=== PATIENT | female | born 1955 | race Caucasian/White ===

== ENCOUNTER → 2018-02-09 | Outpatient (CLI) | payer BC | LOC: GMAB 10:36 | PROVIDERS: ATTEND Family Medicine | DX: D51.3 Other dietary vitamin B12 deficiency anemia (principal) ==

== ENCOUNTER → 2018-03-07 | Outpatient (CLI) | payer BC ==
--- NOTE | 2018-03-07 11:19 | CT ---
EXAM DESCRIPTION: Abdomen w/Contrast: Computed Tomography. CLINICAL HISTORY: EPIGASTRIC PAIN COMPARISON: CT abdomen without and with IV contrast 11/04/2012. TECHNIQUE: Spiral-axial scans at 5.0 mm intervals through the abdomen, after nonionic IV contrast. No oral contrast. Coronal and sagittal 2.0 mm reconstructions. Delayed helical axial 5.0 mm scans, liver to the upper pelvis. No adverse reactions. Total Exam DLP: 712.16 mGy-cm. This exam was performed according to our departmental CT dose-optimization program which includes automated exposure control, adjustment of the mA and/or kV according to patient size and/or use of iterative reconstruction technique; to reduce radiation dose to as low as reasonably achievable (ALARA). FINDINGS: Lung bases and pleura: Bilateral basilar scarring stable. Liver, Stomach, Spleen, Adrenal Glands: Stomach small hiatal hernia otherwise unremarkable; solid organs are negative. Pancreas, Gallbladder, Ducts: Surgical clips gallbladder fossa with no fluid. Postcholecystectomy dilation of the common bile duct. Pancreas negative. Kidneys: Unremarkable. Mesentery: No free fluid or free air. No fatty stranding or fascial thickening. Aorta: Atherosclerotic calcification more distally extending into the common iliac arteries bilaterally. Small periaortic lymph nodes at the level of the crossing of the duodenum. Small Bowel: Normal caliber. Terminal Ileum/Cecum: Not visualized. Appendix not visualized. Colon: Included segments with diffuse fecal material and redundancy of the transverse colon. Spine: Minimal disc space narrowing L5-S1 and narrowing of the foramen. Calcification posterior L2-3 disc. Abdominal Wall/Back Soft Tissues: Unremarkable. IMPRESSION: 1. Stable bibasilar scarring in the lungs. 2. Stable small gastric hiatal hernia. 3. Stable small periaortic lymph nodes, left of the aorta, at the level of the duodenal crossing. 4. Stable spondylosis L2-3 and L5-S1. Electronically signed by: Jesus Gutierrez MD 03/07/2018 11:18 AM CDT
== END ==
LOC: LAB.O 08:04
PROVIDERS: ATTEND Internal Medicine Gastroenterology
DX: R10.13 Epigastric pain (principal); K44.9 Diaphragmatic hernia without obstruction or gangrene

== ENCOUNTER 2018-04-08 07:56 | Observation (INO) | payer BC ==
[2018-04-08] MEDS ORDERED: MORPHINE SULFATE INJ 10 MG/ML VIAL IV ONE (08:08)
[2018-04-08] MEDS ORDERED: ASPIRIN TABLET 325 MG TAB PO ONE (08:08)
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
[2018-04-08] MEDS ORDERED: KETOROLAC TROMETHAMINE INJ 30 MG/ML VIAL IV ONE (08:46)
[2018-04-08] MEDS ORDERED: diazePAM 5 MG TAB PO ONE (08:46)
[2018-04-08] MEDS ORDERED: LIDOCAINE HCL 2% (MOUTH-THROAT) 15 ML UD ONE (09:06)
[2018-04-08] MEDS ORDERED: ALUM & MAG HYDROX-SIMETHICONE 30 ML UD ONE (09:06)
[2018-04-08] MEDS ORDERED: ALUM & MAG HYDROX-SIMETHICONE 30 ML, LIDOCAINE VISCOUS 2% 15 ML PO ONE ×2 (09:07)
[2018-04-08] MEDS ORDERED: PANTOPRAZOLE SODIUM IV 40 MG VIAL IV ONE (09:43)
[2018-04-08] MEDS ORDERED: SUCRALFATE 1 GM/10 ML 1 GM UD PO ONE ×2 (09:43→13:36)
--- NOTE | 2018-04-08 12:42 | ED.PDOC ---
History of Present Illness - General Chief Complaint: Chest Pain/KS Stated Complaint: right sided chest pain Time Seen by Provider: 04/08/18 08:01 Source: patient Exam Limitations: no limitations - History of Present Illness Initial Comments: the patient is a 62-year-old female presenting to the emergency room secondary to right upper chest and back pain starting last night mildly at around 8 PM. The pain is worsened overnight and become severe today. It is a little worse with movement. It seems to be a little worse with lying back. Not definitely worse with taking a deep breath. There is no associated syncope or near syncope. No shortness of breath. She does have some mild muscle discomfort palpation over the pectoralis muscle in the paraspinal muscles in the areas where she is having pain but it does not really reproduce the pain that she is feeling. Morphine Toradol and Valium fail to help the pain really any at all. She did however get some significant pain relief with a GI cocktail. 2 weeks ago she had an upper endoscopy confirming significant gastritis as well as a hiatal hernia and esophagitis. She was written for a new medication but reports that she has been still having some significant reflux issues. She has had reflux issues for a long time. Timing/Duration: constant, getting worse Severity: severe Improving Factors: medication Worsening Factors: nothing Associated Symptoms: chest pain Allergies/Adverse Reactions: Allergies Erythromycin Allergy (Verified 04/08/18 08:05) Review of Systems - Review of Systems Constitutional: States: no symptoms reported EENTM: States: no symptoms reported Respiratory: States: no symptoms reported Cardiology: States: chest pain Gastrointestinal/Abdominal: States: nausea Genitourinary: States: no symptoms reported Musculoskeletal: States: back pain Skin: States: no symptoms reported Neurological: States: anxiety Endocrine: States: no symptoms reported All other Systems: No Change from Baseline Family Medical History - Family History Mother Family History: Unknown Physical Exam - Physical Exam General Appearance: Alert, Anxious Eye Exam: bilateral normal Ears, Nose, Throat: hearing grossly normal, normal ENT inspection, normal pharynx Neck: full range of motion, supple Respiratory: lungs clear, normal breath sounds, no respiratory distress, no accessory muscle use, other - patient does have someright pectoralis muscle discomfort to palpationbut it does not entirely reproduce her symptoms Cardiovascular/Chest: normal peripheral pulses, regular rate, rhythm, no edema Peripheral Pulses: radial,right: 2+, radial,left: 2+, dorsalis pedis,right: 2+, dorsalis pedis,left: 2+ Gastrointestinal/Abdominal: non tender, soft, other - mild epigastric discomfort to palpation Rectal Exam: deferred Back Exam: no vertebral tenderness, other - she does have mild upper paraspinal muscle discomfort palpation on the right Extremity: non-tender, normal inspection, no pedal edema, normal capillary refill 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, no motor/sensory deficits, alert, oriented x 3, other - the patient is very anxious Skin Exam: normal color Comments: Vital Signs - 24 hr 04/08/18 04/08/18 04/08/18 07:57 08:05 08:59 Temperature 97.5 F L Pulse Rate [ 86 86 71 left brachial] Respiratory 24 24 26 H Rate Blood Pressure 168/92 147/88 [left brachial] O2 Sat by Pulse 100 100 Oximetry 04/08/18 04/08/18 04/08/18 10:00 12:00 12:31 Temperature Pulse Rate [ 67 63 63 left brachial] Respiratory 16 Rate Blood Pressure 146/79 143/82 142/80 [left brachial] O2 Sat by Pulse 98 Oximetry Progress - Progress Progress: 04/08/18 12:45 the patient is a 62-year-old female presenting to the emergency room secondary to right-sided chest pain that has been gradually progressive to a severe state over the last 12 hours. She does have a significant history of gastritis and esophagitis with a known hiatal hernia just documented 2 weeks ago on endoscopy. This is most likely source of her pain. The patient has responded very positively to GI medications while failing with morphine and Valium and Toradol. 2 sets of cardiac enzymes are negative here. There is no elevation of the d-dimer or CK to indicate significant aortic pathology. No widening of the mediastinum either on x-ray. The patient is feeling significantly better at this time however given the severity of her symptoms upon arrival the patient is going to be admitted for continued control of her symptoms and for the longer cardiac rule out. the patient does not seem to have any significant vascular history and her risks for vascular pathology seen minimal for her age. - Results/Orders Results/Orders: chest x-ray shows no obvious acute pathology. No widening of mediastinum. No significant infiltrates. EKG shows normal sinus rhythm. No acute ST segment changes concerning for ischemia. Normal QT interval. Rate is 81 bpm. Vital Signs - 24 hr 04/08/18 04/08/18 04/08/18 07:57 08:05 08:59 Temperature 97.5 F L Pulse Rate [ 86 86 71 left brachial] Respiratory 24 24 26 H Rate Blood Pressure 168/92 147/88 [left brachial] O2 Sat by Pulse 100 100 Oximetry 04/08/18 04/08/18 04/08/18 10:00 12:00 12:31 Temperature Pulse Rate [ 67 63 63 left brachial] Respiratory 16 Rate Blood Pressure 146/79 143/82 142/80 [left brachial] O2 Sat by Pulse 98 Oximetry Laboratory Tests 04/08/18 04/08/18 04/08/18 08:07 08:07 08:07 WBC 8.9 RBC 4.64 Hgb 15.1 Hct 44.5 MCV 95.9 MCH 32.5 H MCHC 33.9 RDW 12.8 Plt Count 347 MPV 8.3 Absolute Neuts (auto) 4.70 Absolute Lymphs (auto) 2.80 Absolute Monos (auto) 1.00 H Absolute Eos (auto) 0.30 Absolute Basos (auto) 0.10 Neutrophils % 52.8 Lymphocytes % 31.6 Monocytes % 11.9 H Eosinophils % 2.9 Basophils % 0.8 PT 9.4 INR 0.94 PTT (SP) 24.3 D-Dimer, Quantitative < 0.19 Sodium 138 Potassium 3.9 Chloride 104 Carbon Dioxide 26 Anion Gap 11.9 L BUN 16 Creatinine 0.88 BUN/Creatinine Ratio 18.2 Random Glucose 99 Serum Osmolality 276.9 Calcium 9.2 Magnesium 2.1 Total Bilirubin 0.5 AST 22 ALT 17 Alkaline Phosphatase 47 Creatine Kinase 34 CK-MB (CK-2) 1.1 CK-MB (CK-2) % Not Reportable Troponin I < 0.02 B-Natriuretic Peptide 49.0 Serum Total Protein 7.0 Albumin 4.2 Globulin 2.8 Albumin/Globulin Ratio 1.5 TSH 4.17 Urine Color Urine Appearance Urine pH Ur Specific [place] Urine Protein Urine Glucose (UA) Urine Ketones Urine Blood Urine Nitrite Urine Bilirubin Urine Urobilinogen Ur Leukocyte Esterase Urine RBC Urine WBC Ur Epithelial Cells Urine Bacteria 04/08/18 04/08/18 09:12 11:58 WBC RBC Hgb Hct MCV MCH MCHC RDW Plt Count MPV Absolute Neuts (auto) Absolute Lymphs (auto) Absolute Monos (auto) Absolute Eos (auto) Absolute Basos (auto) Neutrophils % Lymphocytes % Monocytes % Eosinophils % Basophils % PT INR PTT (SP) D-Dimer, Quantitative Sodium Potassium Chloride Carbon Dioxide Anion Gap BUN Creatinine BUN/Creatinine Ratio Random Glucose Serum Osmolality Calcium Magnesium Total Bilirubin AST ALT Alkaline Phosphatase Creatine Kinase CK-MB (CK-2) 1.0 CK-MB (CK-2) % Troponin I < 0.02 B-Natriuretic Peptide Serum Total Protein Albumin Globulin Albumin/Globulin Ratio TSH Urine Color Yellow Urine Appearance Clear Urine pH 8.5 H Ur Specific [place] 1.015 Urine Protein Negative Urine Glucose (UA) Negative Urine Ketones Negative Urine Blood Trace-intact H Urine Nitrite Negative Urine Bilirubin Negative Urine Urobilinogen 0.2 Ur Leukocyte Esterase Negative Urine RBC 0 Urine WBC 0 Ur Epithelial Cells 3-5 Urine Bacteria 0 Departure - Departure Clinical Impression: Esophagitis, Chest pain, atypical Disposition: Admit Patient Referrals: Juan Berry MD [Primary Care Provider] - 1-2 Weeks Decision To Admit - Decistion To Admit Decision to Admit Reason: Medical Nature Decision to Admit Date: 04/08/18 Decision to Admit Time: 12:48
[2018-04-08] MEDS ORDERED: ALUMINUM & MAGNESIUM HYDROXIDE 30 ML UD PO ONE (12:49)
--- NOTE | 2018-04-08 13:06 | HP ---
SUPERVISING PHYSICIAN: Chad Silva M.D. CHIEF COMPLAINT: Right sided chest pain. HISTORY OF PRESENT ILLNESS: This is a 62 year-old female patient who presented to the Emergency Room secondary to right upper chest pain as well as back pain. It started last night. She had some chest pain that felt like a "pulled muscle" above her right breast. It continued off and on during the night and this morning the pain went through to her back. She was quite worried about it because she has had some friends that have recently due to a myocardial infarction, so she came to the Emergency Room. It was somewhat better with rest and worse with movement. She did not have any diaphoresis. She took a muscle relaxer but it did not help. She was recently diagnosed with gastritis several weeks ago by her GI doctor, Dr. Soto in [place]. He had changed her Protonix to some other medication. She also has a hiatal hernia and esophagitis. In the Emergency Room, she was given a GI cocktail as well as some Toradol for pain. Her initial 2 sets of cardiac enzymes were negative. Her CBC was basically within normal limits as well as her coagulation studies. Chemistries were within normal limits, including her cardiac enzymes. Urinalysis showed a slightly elevated urine pH of 8.5 with a trace of intact urine blood. Chest x-ray showed normal heart size, mild tortuosity of the aorta. No edema, infiltrates or effusions. Minimal subsegmental atelectasis at the left costophrenic angle. I was called for hospital admission. PAST MEDICAL HISTORY: 1. Hypertension. 2. Chronic low back pain. 3. Lumbar radiculopathy. 4. Osteopenia. 5. Diverticulosis. 6. Gastroesophageal reflux disease. 7. Hiatal hernia. 8. Esophagitis. PAST SURGICAL HISTORY: 1. Appendectomy. 2. Cholecystectomy. 3. Hysterectomy. 4. Two back surgeries. 5. Carpal tunnel surgery. CURRENT MEDICATIONS: 1. Losartan. 2. Bupropion. 3. Omeprazole. ALLERGIES: ERYTHROMYCIN BASE. SOCIAL HISTORY: She is . She quit smoking in 2017. She drinks alcohol on a social basis only. There is no illicit drug use history. REVIEW OF SYSTEMS: GENERAL: Negative for fatigue, fever or weight changes. HEENT: Negative for sinus symptoms, ear pain, vision changes or sore throat. RESPIRATORY: Negative for coughing, wheezing, shortness of breath. CARDIAC: As per history of present illness. No palpitations. GASTROINTESTINAL: Positive for nausea. Negative for vomiting, diarrhea or constipation. GENITOURINARY: Negative for hematuria, dysuria or polyuria. MUSCULOSKELETAL: Positive for back pain. Negative for arthralgias. SKIN: Negative for lesions or rashes. NEUROLOGIC: Positive for anxiety. Negative for dizziness, seizures or headaches. PHYSICAL EXAMINATION: VITAL SIGNS: She is afebrile, heart rate is between 63 and 99. Blood pressure 143/82, respiratory rate 24, O2 sat 98% on room air. GENERAL: This is a 62 year-old female patient lying in her hospital bed. She is in no acute distress. HEENT: Normocephalic and atraumatic. Pupils are equal and reactive. Oropharynx is clear. NECK: Supple without mass. RESPIRATORY: Essentially clear to auscultation bilaterally. CARDIOVASCULAR: Regular rate and rhythm. Sinus bradycardia to sinus rhythm on the clinical research monitor. GASTROINTESTINAL: Abdomen is soft, nondistended, non-tender. Bowel sounds are positive. EXTREMITIES: No cyanosis, clubbing or edema. NEUROLOGIC: She is awake, alert and oriented times three. LABORATORY: Labs and films are as per the history of present illness. ASSESSMENT: 1. Chest pain rule out myocardial infarction. 2. Gastritis. 3. Right shoulder pain that radiates to the right upper back. 4. Gastroesophageal reflux disease. 5. Hypertension. 6. Chronic back pain with neuropathy. PLAN: We will place the patient in Observation in the hospital. I have initiated chest pain guidelines. Repeat her serial enzymes as per orders and repeat her lab in the morning. I have also ordered some Carafate as well as a PPI for ulcer prophylaxis and Lovenox for DVT prophylaxis. I have restarted her home medications. I have given her 4 scheduled doses of Toradol as well as some p.r.n. Hydrocodone. Will continue to monitor her closely and follow as needed. Dr. Silva is the collaborating physician available for consultation. #[id number] [facility]
[2018-04-08] MEDS ORDERED: ONDANSETRON ODT 8 MG TAB SL ONE (13:35)
[2018-04-08] MEDS ORDERED: HYDROmorphone HCL INJ 2 MG/ML VIAL IV ONE (13:35)
[2018-04-08] MEDS ORDERED: NITROGLYCERIN 0.4 MG 25 EA TAB SL PRN (15:15)
[2018-04-08] MEDS ORDERED: MORPHINE SULFATE INJ 10 MG/ML VIAL IV PRN (15:15)
[2018-04-08] MEDS ORDERED: ACETAMINOPHEN 325 MG TAB PO PRN (15:15)
[2018-04-08] MEDS ORDERED: SODIUM CHLORIDE 0.9% (FLUSH) 10 ML SYG IV PRN (15:15)
[2018-04-08] MEDS ORDERED: IV SET AND CAP CHANGE INJ INJ SCH (15:30)
[2018-04-08] MEDS ORDERED: ENOXAPARIN SODIUM 40 MG/0.4 ML SYG SUBCU SCH (15:30)
[2018-04-08] MEDS ORDERED: PANTOPRAZOLE SODIUM IV 40 MG VIAL ONE (19:46)
[2018-04-08] MEDS: KETOROLAC TROMETHAMINE INJ 30 MG/ML VIAL IV SCH (20:00)
[2018-04-08] MEDS: HYDROcodone 5MG/APAP 325MG 1 EA TAB PO PRN (20:06)
[2018-04-08] MEDS: SODIUM CHLORIDE 0.9% (FLUSH) 10 ML SYG IV SCH (20:08)
[2018-04-08] MEDS: SUCRALFATE 1 GM/10 ML 1 GM UD PO SCH (20:08)
[2018-04-09] MEDS: KETOROLAC TROMETHAMINE INJ 30 MG/ML VIAL IV SCH ×2 (01:07→08:21)
[2018-04-09] MEDS: HYDROcodone 5MG/APAP 325MG 1 EA TAB PO PRN ×2 (01:14→11:26)
[2018-04-09] MEDS: SUCRALFATE 1 GM/10 ML 1 GM UD PO SCH (06:29)
[2018-04-09] MEDS ORDERED: PANTOPRAZOLE SODIUM IV 40 MG VIAL IV SCH (06:30)
[2018-04-09] MEDS: SODIUM CHLORIDE 0.9% (FLUSH) 10 ML SYG IV SCH (08:22)
[2018-04-09] MEDS ORDERED: ASPIRIN TABLET 325 MG TAB PO SCH (09:00)
[2018-04-09] MEDS ORDERED: LOSARTAN POTASSIUM 25 MG TAB PO SCH (09:00)
[2018-04-09 10:44] VITALS: BP 120/72; TEMP 97.8; O2SAT 98
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
== END 2018-04-09 11:29 | disposition home or self-care (01) ==
LOC: ER 07:56 → MS 13:05
PROVIDERS: ADMIT Nurse Practitioner Acute Care; ATTEND Nurse Practitioner Family
DX: R07.89 Other chest pain (principal); K29.70 Gastritis, unspecified, without bleeding; K44.9 Diaphragmatic hernia without obstruction or gangrene; M94.0 Chondrocostal junction syndrome [Tietze]; M25.511 Pain in right shoulder; M54.6 Pain in thoracic spine; K21.9 Gastro-esophageal reflux disease without esophagitis; I10 Essential (primary) hypertension; G89.29 Other chronic pain; M54.5 Low back pain; G62.9 Polyneuropathy, unspecified; Z79.899 Other long term (current) drug therapy; Z88.3 Allergy status to other anti-infective agents; Z87.891 Personal history of nicotine dependence
CPT/HCPCS: J1170; J1885 ×4; J2270; J1650; 85379; 82553 ×4; 80053 ×2; 80061; 36415 ×3; 81001; 85025 ×2; 82550 ×4; 83690; 83735; 85730; 85610; 84443; 84484 ×4; 83880; 71045; 94760 ×5; 93005 ×3; G0378

== ENCOUNTER → 2019-07-12 | Outpatient (CLI) | payer BC | LOC: GMAE 15:09 | PROVIDERS: ATTEND Family Medicine | DX: L60.1 Onycholysis (principal) ==

== ENCOUNTER → 2020-10-29 | Outpatient (CLI) | payer BC ==
--- NOTE | 2020-10-30 08:38 | MRI ---
EXAM DESCRIPTION: Lumbar Spine w/o Contrast : Magnetic Resonance Imaging. CLINICAL HISTORY: MUSCLE WEAKNESS COMPARISON: LUMBAR TECHNIQUE: Multiplanar, multiple standard sequences, non contrast MRI, lumbar spine. FINDINGS: L5-S1: The disc is well visualized on axial T2 series 501, image 3. Disc desiccation and disc space loss. No bulging. Partial left laminectomy. Canal patent. Minimal hypertrophic arthrosis in the left facet. Right ligament and facet joint (canal elements) unremarkable. Mild to moderate endplate reactive changes on the left. Mild bilateral foraminal narrowing. L4-L5: Disc desiccation with disc space maintained. Small posterior midline bulge. Minimal hypertrophy of the canal elements. No canal stenosis. Bilateral foramina are patent. L3-L4: Disc desiccation with disc space maintained. No bulging. Mild hypertrophy of the canal elements with no canal stenosis. Bilateral foramina are patent. Circumscribed hyperintense T1 and T2 hemangioma superior right L3 vertebral body. L2-L3: Disc desiccation. Anterior moderate endplate reactive changes with disc space loss, anterior bulging, and anterior endplate ridging. Posterior midline disc bulge with partial left laminectomy L2. Canal patent. Right canal elements unremarkable. Left foramen patent with mild narrowing right foramen. L1-L2: Normal seen on the disc at this space maintained. Canal elements with minimal hypertrophy.. Bilateral foramina and canal are patent. T12-L1: Disc space maintained with normal signal of the disc. Canal elements with minimal hypertrophy. Canal and foramina are patent. Conus terminates at this level. L3-S1 levoscoliosis. Paravertebral soft tissues fatty muscle atrophy. Distal cord normal signal and caliber. Normal marrow signal in the remaining vertebral bodies and the posterior elements. Vertebral bodies are not compressed at any level. IMPRESSION: 1. Hypertrophic degenerative changes in the bilateral facet joints and posterior flavum ligaments. Contributing to canal narrowing. 2. Partial left laminectomy L5 with disc desiccation and disc space loss. [id number] spondylosis left L5-S1. Mild bilateral foraminal narrowing. 3. Partial left laminectomy at L2. Anterior spondylosis and disc bulging at L2-L3. Mild narrowing right foramen. 4. Please refer to FINDINGS for discussion of results and other specific disc space levels. Electronically signed by: Jesus Gutierrez MD 10/30/2020 8:36 AM [facility]
== END ==
LOC: MRI 09:59
PROVIDERS: ATTEND Family Medicine
DX: M51.36 Other intervertebral disc degeneration, lumbar region (principal); M47.896 Other spondylosis, lumbar region; M51.86 Other intervertebral disc disorders, lumbar region; M48.061 Spinal stenosis, lumbar region without neurogenic claudication; M41.87 Other forms of scoliosis, lumbosacral region; M24.28 Disorder of ligament, vertebrae; M62.81 Muscle weakness (generalized)